=== PATIENT | female | born 1930 | race Caucasian/White ===

== ENCOUNTER → 2017-07-01 | Outpatient (CLI) | payer OTHER, BC ==
[~2017-07-01] MED LIST: B-COCAP2 PO; CALCTAB7 PO; CHOL1000 PO; ELQ25 PO; MAGNTAB4 PO; SIMV20TA2 PO
--- NOTE | 2017-07-01 15:19 | MAMMOGRAPHY REPORT ---
UNILATERAL RIGHT DIGITAL DIAGNOSTIC MAMMOGRAM WITH CAD AND TARGETED LEFT ULTRASOUND: 07/01/2017 CLINICAL HISTORY: The patient reports a history of a prior left breast excisional biopsy, and reports she has had diffuse pain in the left breast since her surgery. She reports no new lumps or areas of pain. TECHNIQUE: Current study was also evaluated with a Computer Aided Detection (CAD) system. Right CC and MLO views were obtained. COMPARISON: Comparison is made to exams dated: 07/18/2011 mammogram - [facility], , 02/21/2008, 03/01/2007, 03/01/2007, and 02/19/2007. BREAST COMPOSITION: There are scattered areas of fibroglandular density in the right breast. FINDINGS: Mammograms of the right breast were obtained. The patient refuses mammography of the left breast due to left breast pain. Mammograms of the right breast demonstrate no suspicious masses, ca lcifications, or areas of architectural distortion. Scattered benign-appearing calcifications are st able. As the patient could not tolerate mammograms, ultrasound of the left breast was obtained including al l 4 quadrants and subareolar region. There are expected post surgical changes in the left 11 to 1:00 periareolar breast, without evidence of a suspicious mass or other suspicious sonographic abnormalit y. Pain was elicited during the exam when scanning near the surgical bed. IMPRESSION: ACR BI-RADS CATEGORY 2: BENIGN, TARGETED ULTRASOUND ACR BI-RADS CATEGORY 2: BENIGN 1. No mammographic evidence of malignancy in the right breast. 2. The patient refused mammography of the left breast due to left breast pain, therefore ultrasound only was performed. There is no sonographic evidence of malignancy in the left breast. Recommend cl inical follow-up for left breast pain. There is no mammographic or targeted sonographic evidence of malignancy. A 1 year screening mammogram is recommended unless otherwise clinically indicated. The patient has been verbally notified of the results. The patient reports she no longer wishes to h ave mammograms in the future. Approximately 10% of breast cancers are not detected with mammography. A negative mammographic report should not delay biopsy if a clinically suggestive mass is present. Suzanne Lloyd M.D. /:07/01/2017 12:24:29 Cad Detailer: Richa MENDEZ(Blake)(Brissa), [facility] letter sent: Normal 1/2 BI-RADS Code: ACR BI-RADS Category 2: Benign Ultrasound BI-RADS: ACR BI-RADS Category 2: Benign
== END | disposition home or self-care (01) ==
LOC: C.MAMM 11:14
PROVIDERS: ATTEND Family Medicine
DX: N64.4 Mastodynia (principal); R92.8 Other abnormal and inconclusive findings on diagnostic imaging of breast

== ENCOUNTER → 2017-12-15 | Outpatient (CLI) | payer OTHER, BC ==
--- NOTE | 2017-12-15 16:24 | DIAGNOSTIC IMAGING REPORT ---
RIBS UNILATERAL WITH PA CHEST CLINICAL HISTORY: RIB PAIN pain COMPARISON STUDY: 02/22/2015 FINDINGS: Mild stable cardiomegaly. Permanent unipolar cardiac pacemaker. Moderate degenerative change right shoulder. Right rib specifically showed no acute abnormality. Cortical margins are intact. IMPRESSION: 1. No acute process right ribs. 2. No acute process of the chest. 3. Significant degenerative change right shoulder. The above report was generated using voice recognition software. It may contain grammatical, syntax or spelling errors. Electronically signed by: Flako Cuellar M.D. 12/15/2017 4:23 PM Dictated Date/Time: 12/15/2017 4:21 PM
== END | disposition home or self-care (01) ==
LOC: C.RAD1850 16:02
PROVIDERS: ATTEND Family Medicine
DX: R07.81 Pleurodynia (principal)

== ENCOUNTER → 2018-01-28 | Outpatient (CLI) | payer OTHER, BC ==
--- NOTE | 2018-01-28 11:14 | DIAGNOSTIC IMAGING REPORT ---
ABDOMINAL ULTRASOUND, RIGHT UPPER QUADRANT HISTORY: EPIGASTRIC PAIN. COMPARISON: Abdomen and pelvis CT 12/01/2012. FINDINGS: Pancreas: The pancreatic head is partially obscured by overlying bowel gas. The pancreatic body and visualized tail are unremarkable. The main pancreatic duct is slightly distended measuring up to 3.5 mm. Liver: The liver is echogenic consistent with mild fatty change. Gallbladder: No gallbladder wall thickening. No gallstones. CBD: 9 mm. This is considered borderline distended for age. Right kidney: No hydronephrosis. Multiple small cysts with the largest measuring 1.6 cm which demonstrates a partially calcified wall. IMPRESSION: 1. Normal gallbladder. No gallstones. 2. The common bile duct and main pancreatic duct are borderline distended for age as described above. Of note, the pancreatic head is partially obscured by overlying bowel gas. 3. Hepatic steatosis. 4. Multiple right renal cysts. Electronically signed by: Jose Zepeda M.D. 01/28/2018 11:13 AM Dictated Date/Time: 01/28/2018 11:10 AM
== END | disposition home or self-care (01) ==
LOC: C.ULTR 09:48
PROVIDERS: ATTEND Nurse Practitioner Family
DX: R10.11 Right upper quadrant pain (principal); R10.13 Epigastric pain

== ENCOUNTER → 2018-02-08 | Outpatient (CLI) | payer OTHER, BC ==
[~2018-02-08] MED LIST changes: +MULT-506 PO; +ZOLP5TAB6 PO
--- NOTE | 2018-02-08 17:24 | DIAGNOSTIC IMAGING REPORT ---
ABDOMEN AND PELVIS CT WITH ORAL CONTRAST HISTORY: Follow-up study in a patient with history of multiple renal cysts CYST OF KIDNEY, OTHER SPECIFIED DISEASE OF BILIARY TECHNIQUE: Multiaxial CT images of the abdomen and pelvis were performed following the use of oral contrast. Pre and postcontrast images were obtained. IV contrast was attempted, however location and measurement technician reports extravasation of contrast in the right antecubital fossa, 100 mL. A dose lowering technique was utilized adhering to the principles of ALARA. COMPARISON STUDY: CT abdomen and pelvis 12/01/2012. FINDINGS: Minimal dependent subsegmental bibasilar atelectasis. Punctate calcified granuloma of the right middle lobe. Subpleural reticular opacities suggest areas of scarring. 4 mm solid pleural-based nodule of the lateral basal segment left lower lobe, image 41 of series 3 is unchanged compatible with benign etiology. There is no pneumatosis or pneumoperitoneum identified. Imaged inferior cardiac chambers are unremarkable with pacer leads noted overlying the right heart. Fatty infiltration of the liver. Indeterminate 5 mm low attenuating lesion of the hepatic dome is too small to characterize, unchanged suggesting benign etiology such as a hepatic cyst. Indeterminate low attenuating 7 mm subserosal lesion of the left hepatic lobe. No intrahepatic biliary ductal dilation. Pancreas, gallbladder and spleen are unremarkable. The adrenal glands are within normal limits. Evaluation of the kidneys and the multiple low attenuating lesions is limited without use of IV contrast. There are several hyperattenuating lesions within the kidneys including a 1.2 cm exophytic lesion of the inferior pole left kidney, image 159 series 3. Several lesions demonstrate layering calcification. There is no renal calculi or obstructive uropathy. There is minimal layering contrast within the collecting systems and ureters. No evidence of enhancing renal mass lesions. Mild urinary bladder distention. Uterus and adnexa are unremarkable. There is moderate atherosclerosis of the aorta without aneurysm. Small sliding-type hiatal hernia. Large duodenal diverticula redemonstrated. No bowel obstruction. Extensive colonic diverticulosis without CT evidence of acute diverticulitis. Normal appendix. Soft tissues are unremarkable. The bones appear intact. Multilevel Schmorl's nodes of the spine with bone demineralization. Hemangioma of the midthoracic segment noted. IMPRESSION: 1. Limited evaluation of the bilateral renal cysts secondary to lack of intravenous contrast. Multiple hyperattenuating lesions of the kidneys bilaterally suggests hemorrhagic or proteinaceous cysts and several of the cysts also demonstrate layering calcification. 2. Hepatic steatosis. 3. Small sliding-type hiatal hernia. 4. Colonic diverticulosis without diverticulitis. Electronically signed by: Emile Ac M.D. 02/08/2018 5:23 PM Dictated Date/Time: 02/08/2018 5:09 PM
== END | disposition home or self-care (01) ==
LOC: C.CTS 13:41
PROVIDERS: ATTEND Student in an Organized Health Care Education/Training Program
DX: N28.1 Cyst of kidney, acquired (principal); K83.8 Other specified diseases of biliary tract; R10.9 Unspecified abdominal pain; K76.0 Fatty (change of) liver, not elsewhere classified; K57.92 Diverticulitis of intestine, part unspecified, without perforation or abscess without bleeding

== ENCOUNTER 2018-02-09 12:34 | Emergency (ER) | payer OTHER, BC ==
[~2018-02-09] VITALS: Ht 152.4 cm; Wt 79.3 kg
[~2018-02-09 12:34] MED LIST changes: -MULT-506 PO; -ZOLP5TAB6 PO
[2018-02-09 12:44] VITALS: TEMP 36.6; Ht 152.4 cm; Wt 79.3 kg
[2018-02-09] MEDS ORDERED: MULT-506 PO (13:12)
[2018-02-09] MEDS ORDERED: ZOLP5TAB6 PO (13:13)
--- NOTE | 2018-02-09 13:55 | DIAGNOSTIC IMAGING REPORT ---
CHEST ONE VIEW PORTABLE HISTORY: 87 years-old Female swelling RUE acute swelling of the right upper extremity COMPARISON: Chest and rib radiographs 12/15/2017 TECHNIQUE: Portable AP view of the chest FINDINGS: Single lead right pectoral pacer appears unchanged with lead overlying the region of the right ventricle. Cardiac silhouette is again enlarged, unchanged. Atherosclerosis of the aorta. Surgical clips project over the left chest wall and left axillary region. There is no pneumothorax, pleural effusion, focal airspace consolidation or overt pulmonary edema. Bones of the chest appear grossly intact. Degenerative changes are seen within the shoulders and spine. IMPRESSION: No acute process. The above report was generated using voice recognition software. It may contain grammatical, syntax or spelling errors. Electronically signed by: Emile Ac M.D. 02/09/2018 1:54 PM Dictated Date/Time: 02/09/2018 1:51 PM
[2018-02-09 14:18] LABS: BASO % 0.4 %; BASO ABS # 0.02 K/uL (0-0.2); EOS % 3.3 %; EOS ABS # 0.17 K/uL (0-0.5); HEMATOCRIT 42.7 % (37-47); HEMOGLOBIN 14.3 g/dL (12.0-16.0); IG# 0.01 K/uL (0.00-0.02); LYMPH % 39.6 %; LYMPH ABS # 2.03 K/uL (1.2-3.4); MEAN CORPUSCULAR HEMOGLOBIN 33.5 pg (25-34); MEAN CORPUSCULAR HGB CONC 33.5 g/dl (32-36); MEAN PLATELET VOLUME 9.9 fL (7.4-10.4); MONO % 9.2 %; MONO ABS # 0.47 K/uL (0.11-0.59); NEUT % 47.3 %; NEUT ABS # 2.43 K/uL (1.4-6.5); PLATELET COUNT 161 K/uL (130-400); RED CELL DISTRIBUTION WIDTH CV 13.1 % (11.5-14.5); RED CELL DISTRIBUTION WIDTH SD 48.1 fL (36.4-46.3); WHITE BLOOD COUNT 5.13 K/uL (4.8-10.8)
[2018-02-09 14:27] LABS: INR 1.1 (0.9-1.1)
[2018-02-09 14:36] LABS: ALBUMIN 3.6 gm/dl (3.4-5.0); CALCIUM 9.2 mg/dl (8.5-10.1); CREATININE 1.35 mg/dl (0.60-1.20); POTASSIUM 4.3 mmol/L (3.5-5.1)
[2018-02-09 14:39] LABS: TOTAL PROTEIN 7.1 gm/dl (6.4-8.2)
--- NOTE | 2018-02-09 15:13 | DIAGNOSTIC IMAGING REPORT ---
R VENOUS DOPPLER UPR EXT UNIL HISTORY: 87 years-old Female swelling RUE acute swelling of the right upper extremity COMPARISON: None available TECHNIQUE: Multiple real-time sonographic images of the right upper extremity deep venous structures were obtained assessing grayscale appearance, color and spectral flow FINDINGS: There is normal flow, phasicity and compressibility of the right upper extremity deep venous structures. Mild nonspecific subcutaneous edema. IMPRESSION: No sonographic evidence of deep venous thrombosis. The above report was generated using voice recognition software. It may contain grammatical, syntax or spelling errors. Electronically signed by: Emile Ac M.D. 02/09/2018 3:12 PM Dictated Date/Time: 02/09/2018 3:11 PM
[2018-02-09 15:14] VITALS: BP 177/89; PULSE 82; O2SAT 95
--- NOTE | 2018-02-09 19:19 | EMERGENCY ROOM VISIT NOTE ---
History Report prepared by Beni: Macarena Liang Under the Supervision of: Dr. Evan Ramirez D.O. First contact with patient: 13:09 Chief Complaint: SWELLING TO EXTREMITY Stated Complaint: RIGHT ARM SWELLING History of Present Illness The patient is a 87 year old female who presents to the Emergency Room with complaints of worsening swelling to her right upper extremity beginning last night. The patient has been having right sided abdominal pain intermittently for the past 6 months. Her PCP ordered a CT scan which she had done in the hospital yesterday. She states that the nurses tried to get an IV and blood work yesterday in the right arm but were unsuccessful. She was stuck multiple times in the right arm. The patient woke up this morning and had worsening swelling of the right arm and right hand. She reports 1/10 pain in the arm and hand. She denies any numbness. She denies any current abdominal pain. Pt denies headache, change in vision, fevers, chest pain, shortness of breath, nausea, vomiting, diarrhea, pain with urination, and melena. Source of History: patient Onset: last night Position: arm (right) Symptom Intensity: 1/10 Quality: other (swelling) Timing: worsening Associated Symptoms: No fevers, No headache, No chest pain, No SOB, No nausea, No vomiting, No abdominal pain, No melena, No diarrhea, No urinary symptoms, No numbness Review of Systems See HPI for pertinent positives & negatives. A total of 10 systems reviewed and were otherwise negative. Past Medical & Surgical Medical Problems: (1) Atrial fibrillation (2) Atrial fibrillation (3) Calculus Of Kidney (4) Closed fracture of right radius (5) Distal radius fracture, right (6) Esophageal Reflux (7) Hematuria, Unspecified (8) Hypertension (9) Hypertension Nos (10) Hypomagnesemia (11) Mitral Valve Disorder (12) Osteoporosis Nos (13) Oth Malaise&Fatigue (14) Wheezy bronchitis Family History FHx: lung disease Social History Smoking Status: Never Smoker Alcohol Use: none Marital Status: Housing Status: lives alone Occupation Status: retired Current/Historical Medications Scheduled Apixaban (Eliquis), 5 MG PO BID Multivitamin (Multivitamin), 1 TAB PO DAILY Simvastatin (Zocor), 20 MG PO QPM Scheduled PRN Zolpidem Tartrate (Zolpidem Tartrate), 2.5 MG PO HS PRN for Sleep Allergies Coded Allergies: Meloxicam (Verified Allergy, Severe, ULCERS, 02/09/18) INFO FROM [employer] Physical Exam Vital Signs Date Time Temp Pulse Resp B/P (MAP) Pulse Ox O2 Delivery O2 Flow Rate FiO2 02/09/18 15:14 82 18 177/89 95 Room Air 02/09/18 12:44 36.6 84 18 99 Room Air Physical Exam GENERAL: Sitting in chair, alert, well appearing, well nourished, no distress, non-toxic EYE EXAM: normal conjunctiva. OROPHARYNX: no exudate, no erythema, lips, buccal mucosa, and tongue normal and mucous membranes are moist NECK: supple, no nuchal rigidity, no adenopathy, non-tender LUNGS: Clear to auscultation. Normal chest wall mechanics HEART: no murmurs, S1 normal and S2 normal ABDOMEN: abdomen soft, non-tender, normo-active bowel sounds, no masses, no rebound or guarding. BACK: Back is symmetrical on inspection and there is no deformity, no midline tenderness, no CVA tenderness. SKIN: no rashes and no bruising UPPER EXTREMITIES: Radial pulse 2/4 bilaterally. Swelling of right forearm and humerus with multiple bruising from IV sticks on palmar surface. LOWER EXTREMITIES: No pitting edema, calves equal bilaterally. NEURO EXAM: Normal sensorium, cranial nerves II-XII grossly intact, normal speech, no gross weakness of arms, no gross weakness of legs. Medical Decision & Procedures ER Provider Diagnostic Interpretation: Radiology results as stated below per my review and the radiologist's interpretation: R VENOUS DOPPLER UPR EXT UNIL HISTORY: 87 years-old Female swelling RUE acute swelling of the right upper extremity COMPARISON: None available TECHNIQUE: Multiple real-time sonographic images of the right upper extremity deep venous structures were obtained assessing grayscale appearance, color and spectral flow FINDINGS: There is normal flow, phasicity and compressibility of the right upper extremity deep venous structures. Mild nonspecific subcutaneous edema. IMPRESSION: No sonographic evidence of deep venous thrombosis. The above report was generated using voice recognition software. It may contain grammatical, syntax or spelling errors. Electronically signed by: Emile Ac M.D. 02/09/2018 3:12 PM Dictated Date/Time: 02/09/2018 3:11 PM CHEST ONE VIEW PORTABLE HISTORY: 87 years-old Female swelling RUE acute swelling of the right upper extremity COMPARISON: Chest and rib radiographs 12/15/2017 TECHNIQUE: Portable AP view of the chest FINDINGS: Single lead right pectoral pacer appears unchanged with lead overlying the region of the right ventricle. Cardiac silhouette is again enlarged, unchanged. Atherosclerosis of the aorta. Surgical clips project over the left chest wall and left axillary region. There is no pneumothorax, pleural effusion, focal airspace consolidation or overt pulmonary edema. Bones of the chest appear grossly intact. Degenerative changes are seen within the shoulders and spine. IMPRESSION: No acute process. The above report was generated using voice recognition software. It may contain grammatical, syntax or spelling errors. Electronically signed by: Emile Ac M.D. 02/09/2018 1:54 PM Dictated Date/Time: 02/09/2018 1:51 PM Laboratory Results 02/09/18 13:54 Red Blood Count 4.27, Mean Corpuscular Volume 100.0, Mean Corpuscular Hemoglobin 33.5, Mean Corpuscular Hemoglobin Concent 33.5, Mean Platelet Volume 9.9, Neutrophils (%) (Auto) 47.3, Lymphocytes (%) (Auto) 39.6, Monocytes (%) ( Auto) 9.2, Eosinophils (%) (Auto) 3.3, Basophils (%) (Auto) 0.4, Neutrophils # ( Auto) 2.43, Lymphocytes # (Auto) 2.03, Monocytes # (Auto) 0.47, Eosinophils # ( Auto) 0.17, Basophils # (Auto) 0.02 02/09/18 13:54 Test 02/09/18 13:54 White Blood Count 5.13 K/uL (4.8-10.8) Red Blood Count 4.27 M/uL (4.2-5.4) Hemoglobin 14.3 g/dL (12.0-16.0) Hematocrit 42.7 % (37-47) Mean Corpuscular Volume 100.0 fL (80-100) Mean Corpuscular Hemoglobin 33.5 pg (25-34) Mean Corpuscular Hemoglobin Concent 33.5 g/dl (32-36) Platelet Count 161 K/uL (130-400) Mean Platelet Volume 9.9 fL (7.4-10.4) Neutrophils (%) (Auto) 47.3 % Lymphocytes (%) (Auto) 39.6 % Monocytes (%) (Auto) 9.2 % Eosinophils (%) (Auto) 3.3 % Basophils (%) (Auto) 0.4 % Neutrophils # (Auto) 2.43 K/uL (1.4-6.5) Lymphocytes # (Auto) 2.03 K/uL (1.2-3.4) Monocytes # (Auto) 0.47 K/uL (0.11-0.59) Eosinophils # (Auto) 0.17 K/uL (0-0.5) Basophils # (Auto) 0.02 K/uL (0-0.2) RDW Standard Deviation 48.1 fL (36.4-46.3) RDW Coefficient of Variation 13.1 % (11.5-14.5) Immature Granulocyte % (Auto) 0.2 % Immature Granulocyte # (Auto) 0.01 K/uL (0.00-0.02) Prothrombin Time 11.4 SECONDS (9.0-12.0) Prothromb Time International Ratio 1.1 (0.9-1.1) Anion Gap 7.0 mmol/L (3-11) Est Creatinine Clear Calc Drug Dose 26.8 ml/min Estimated GFR () 40.5 Estimated GFR (Non- 35.0 BUN/Creatinine Ratio 13.6 (10-20) Calcium Level 9.2 mg/dl (8.5-10.1) Total Bilirubin 1.0 mg/dl (0.2-1) Direct Bilirubin 0.2 mg/dl (0-0.2) Aspartate Amino Transf (AST/SGOT) 22 U/L (15-37) Alanine Aminotransferase (ALT/SGPT) 23 U/L (12-78) Alkaline Phosphatase 64 U/L (45-117) Total Protein 7.1 gm/dl (6.4-8.2) Albumin 3.6 gm/dl (3.4-5.0) Lipase 225 U/L (73-393) Laboratory results per my review. ED Course ED COURSE: Vital signs were reviewed and showed normal vitals. The patients medical record was reviewed The above diagnostic studies were performed and reviewed. ED treatments and interventions as stated above. 1309: The patient was evaluated in room B4B. A complete history and physical examination was performed. 1515: Upon reevaluation, the patient is feeling better and resting comfortably. I discussed my findings with the patient and she understands and agrees with the treatment plan. Based on the patients age, coexisting illnesses, exam and lab findings the decision to treat as an outpatient was made. The patient remained stable while under my care. The patient appeared well at the time of discharge. Medical Decision Differential diagnosis: Etiologies such as DVT, musculoskeletal, infection, joint effusion, trauma, lymphedema, idiopathic, CHF, as well as others were entertained.. Patient is an 87-year-old female who presents the ER for swelling of the right upper extremity. Yesterday she had a CT of her abdomen and pelvis for right lower quadrant pain that has been present for the past [address] showed no acute pathology. She was stuck multiple times in the right forearm. Right arm is larger than left. Neurovascularly intact. CBC along with BMP, LFTs and bilirubin lipase is normal. Duplex of the right upper extremity was negative. I do favor this secondary to the recent IV possible infiltration. Patient was updated at bedside and discharged to follow-up with PCP as an outpatient for reevaluation in 2 days. Discussed with Pt concerning signs and symptoms to watch out for. Pt was instructed to follow up with their PCP and discussed with the patient their option to return to the ED at anytime for persistent or worsening symptoms. The appropriate anticipatory guidance and out-patient management, including indications for return to the emergency department, were explained at length to the patient and understood. Medication Reconcilliation Current Medication List: was personally reviewed by me Blood Pressure Screening Patient's blood pressure: Normal blood pressure Impression Primary Impression: Swelling of right extremity Scribe Attestation The scribe's documentation has been prepared under my direction and personally reviewed by me in its entirety. I confirm that the note above accurately reflects all work, treatment, procedures, and medical decision making performed by me. Departure Information Dispostion Home / Self-Care Referrals Vishal Houhg MD (PCP) Forms HOME CARE DOCUMENTATION FORM, IMPORTANT VISIT INFORMATION, WORK / SCHOOL INSTRUCTIONS Patient Instructions My [facility] Additional Instructions Please follow up with your primary care doctor with in the next 24 hours. Any worsening of your symptoms, please return to the ED immediately. This includes any fevers greater than 100.4, worsening pain, chest pain, shortness breath, persistent nausea, vomiting, unable to eat or drink, or any other concerning signs or symptoms from your standpoint. You were found to have swelling in your right upper extremity. Please keep the arm elevated and have this followed up on by your primary care doctor within the next 2 days. Please use your arm as you normally would.
== END 2018-02-09 15:41 | disposition home or self-care (01) ==
LOC: C.EDB 12:36
DX: R60.0 Localized edema (principal); I48.91 Unspecified atrial fibrillation; K21.9 Gastro-esophageal reflux disease without esophagitis; I10 Essential (primary) hypertension; M81.0 Age-related osteoporosis without current pathological fracture; I05.9 Rheumatic mitral valve disease, unspecified; E83.42 Hypomagnesemia; Z87.442 Personal history of urinary calculi; Z88.8 Allergy status to other drugs, medicaments and biological substances